=== PATIENT | male | born 1975 | race Caucasian/White ===

== ENCOUNTER 2016-12-02 09:18 | Day surgery (SDC) | payer OTHER ==
--- NOTE | 2016-11-21 14:44 | HP ---
DATE OF ADMISSION: 12/02/16 DATE OF DICTATION: 11/09/2016 Patient is to be admitted to [facility] on . HISTORY: This is a 41-year-old man admitted through [facility] for excision of a left posterolateral scalp mass. According to the patient, it has been present for quite a few years. Recently, it has gotten significantly larger in size. He is uncomfortable with the presence of the mass, presents for excision of it. PAST MEDICAL HISTORY: Significant only for GERD. No history of hypertension, heart disease, diabetes, respiratory, renal, or hepatic insufficiency. Patient has had cataracts in the past. PAST SURGICAL HISTORY: Significant for eye surgery in 2009. ALLERGIES: SHELLFISH (hives). CURRENT MEDICATIONS: None. SOCIAL HISTORY: Negative for tobacco. Patient did smoke up until a couple of months ago. Alcohol negative. FAMILY HISTORY: Essentially nil. REVIEW OF SYSTEMS: Nil. PHYSICAL EXAMINATION: HEENT: Patient has a 2.5-cm soft tissue mass involving the left posterolateral scalp. The mass appears to be confined to the subcutaneous space. There are no satellite lesions or regional lymphadenopathy. IMPRESSION: Left posterolateral scalp mass. PLAN: Excision of the left posterolateral scalp mass under local anesthesia with sedation. Indications, alternatives, possible complications were reviewed. Consent obtained. Patient is to be seen preoperatively by Dr. Mcqueen. Please refer to his notes for those medical details. Jean [id number] cc: Jean Stinson
[2016-11-25 13:40] VITALS: BMI 29.6
[2016-12-02] MEDS ORDERED: MIDAZOLAM HCL 2 MG/2 ML SINGLE DOSE VIAL ONE (11:21)
[2016-12-02] MEDS ORDERED: PROPOFOL 20 ML ONE ×2 (11:38)
[2016-12-02] MEDS ORDERED: DEXAMETHASONE SOD PHOSPHATE 4 MG/1 ML VIAL ONE (11:46)
[2016-12-02] MEDS ORDERED: ceFAZolin SODIUM 1 GM VIAL ONE (11:46)
[2016-12-02] MEDS ORDERED: ONDANSETRON 4 MG/2 ML VIAL ONE (11:46)
[2016-12-02] MEDS ORDERED: LIDOCAINE 1%/EPI 1:100000 (50 ML MULTI DOSE VIAL) INF ONE ×2 (12:21)
[2016-12-02] MEDS ORDERED: ONDANSETRON 4 MG/2 ML VIAL IVPUSH ONE (13:07)
[2016-12-02] MEDS ORDERED: ACETAMINOPHEN 325 MG TABLET (FP) PO ONE (13:08)
[2016-12-02] MEDS ORDERED: ACETAMINOPHEN INJECTION 100 ML IVPB ONE (13:19)
[2016-12-02] MEDS ORDERED: ACETAMINOPHEN 1000 MG/100 ML VIAL (NON FORMULARY) IVPB ONE (13:30)
[2016-12-02 13:35] VITALS: TEMP 97.7
--- NOTE | 2016-12-02 13:52 | OP ---
DATE OF OPERATION: 12/02/2016 PREOPERATIVE DIAGNOSIS: Left posterolateral scalp mass. POSTOPERATIVE DIAGNOSIS: Left posterolateral scalp mass. PROCEDURE: Excision left posterolateral scalp mass. OPERATING SURGEON: Wilfrido Dawson MD ANESTHESIA: Pako Sequeira MD ([facility], [facility] [place]) HISTORY: A 41-year-old man with a progressively enlarging soft tissue mass involving the posterolateral aspect of the scalp. It appears the mass has been present for several years. It has been progressively larger in size. He presents for excision of it. DESCRIPTION OF PROCEDURE: Indications, alternatives, possible complications reviewed. Consent obtained. With the patient in the supine position with the head turned to the left, the posterolateral scalp was prepped and draped in usual sterile fashion using Betadine. A 4-cm transverse incision was made directly over the mass itself and deepened through the full thickness of the skin and subcutaneous tissue. Deep to the [place] subcutaneous tissues of the scalp encapsulated with fibrous-appearing material, was the obvious mass. Staying on the mass, the mass was dissected free from its attachments to the [place] subcutaneous tissue. The excision was deepened to the level of the musculature below. It was excised sharply off the fascia of the scalp muscle. It was openly delivered. After adequate hemostasis , the wound was then closed in layers. The subcutaneous tissues were approximated with interrupted 3-0 chromic sutures. The subcuticular layer was approximated with interrupted 3-0 Vicryl sutures. The skin edges were approximated using a continuous 5-0 nylon suture. Bacitracin applied. Dressing applied. Instrument count correct. Blood loss minimal. Specimen, left posterolateral scalp mass. Drains, none. The patient tolerated the procedure. The procedure was terminated. WILFRIDO DAWSON M.D. [id number] MTDD
[2016-12-02 14:03] VITALS: BP 119/81; PULSE 68
--- NOTE | 2016-12-06 13:48 | PATH ---
Surgical Pathology Report Patient Name: MARYANN CAMPA Med. Rec. #: [id number] /Age/Gender: 1975 (Age: 41) / M Account: [id number] Location: [facility] Taken: 12/02/2016 Received: 12/02/2016 Reported: 12/06/2016 Physicians: Wilfrido Dawson M.D. Specimen(s) Received LEFT POSTERIOR LATERAL SCALP MASS Clinical History Soft tissue mass posterior lateral scalp Final Diagnosis SOFT TISSUE, POSTERIOR LATERAL SCALP, EXCISION: LIPOMA. Electronically Signed Rahul Granados M.D. Gross Description Received in formalin labeled "left posterior lateral scalp mass," is a 3.0 x 3.0 x 1.4 cm portion of yellow, lobulated adipose tissue. Sectioning reveals homogeneous yellow, smooth fat. No areas of hemorrhage or necrosis are identified. A representative phlebotomy services section is submitted in one cassette. 12/05/2016 [facility]
== END 2016-12-02 14:00 | disposition home or self-care (01) ==
LOC: FASU 09:18
PROVIDERS: ATTEND Surgery
PROC: 0JB00ZZ Excision of Scalp Subcutaneous Tissue and Fascia, Open Approach (ICD-10-PCS; principal; 2016-12-02 11:58)
DX: D17.0 Benign lipomatous neoplasm of skin and subcutaneous tissue of head, face and neck (principal)
CPT/HCPCS: 88304-TC